=== PATIENT | female | born 1970 | race Caucasian/White ===

== ENCOUNTER 2024-05-27 11:03 | Emergency (ER) | payer OTHER, SELFPAY ==
[2024-05-27 11:05] VITALS: BP 135/61; PULSE 70; RESP 16; TEMP 35.9; O2SAT 98
[2024-05-27 11:14] VITALS: BP 135/61; PULSE 70; RESP 16; TEMP 35.9; O2SAT 98
--- NOTE | 2024-05-27 11:19 | ECG_ITS ---
Test Date: 2024-05-27 12:17:54 Measurements Intervals [place] Rate: 75 P: 41 [place]: 138 QRS: 24 QRSD: 89 T: 45 QT: 424 QTc: 476 Interpretive Statements SINUS RHYTHM NORMAL ECG No previous ECG available for comparison Electronically Signed On 05-27-2024 12:45:24 CDT by Tayo Ramos D.O.
--- NOTE | 2024-05-27 11:30 | PC.NURSE ---
PT STATES SHE IS LEAVING, YOU CAN'T KEEP ME HERE, I HAVE DONE NOTHING WRONG, I DO NOT WANT TO HURT MYSELF OR ANYONE ELSE. THIS IS WRONG, I SHOULDN'T BE HERE. YOU WON'T LET ME TALK TO ANYONE WHO ISN'T FROM [place] AND EVERYONE IS LYING TO ME, NOW WHAT? IT IS ALWAYS SOMETHING ELSE WITH YOU PEOPLE. PD NOTIFIED THAT PT WAS ATTEMPTING TO LEAVE, HOWEVER SHE DID CALM DOWN AND WAS REDIRECTED TO EXAM ROOM. PD STAYED AT BEDSIDE WHILE LABS WERE COLLECTED, MEDICATIONS ADMINISTERED, AND WAS OUTSIDE OF RR WHEN PT CHANGED HER CLOTHING INTO SCRUBS. BELONGINGS WERE SECURED IN [facility] ROOM. PT DOES RAMBLE ON LOUDLY REFUSING TO COMPLY, HOWEVER SHE REFUSES, SHE IS COMPLYING. PT REPORTS SHE WILL TAKE HER DOSE OF ZYPREXA IN ER, STATES SHE DID TAKE HER DOSE LAST PM, THAT SHE HAS NOT TAKEN HER DAILY DOSE SERTRALINE. PT DOES RETURN TO EXAM ROOM AND STAY IN ROOM, CONTINUING TO STATE SHE NEEDS TO BE HOME TO SEE THE HOUSING AUTHORITY AND NO ONE WILL LET HER USE THE PHONE, SHE WANTS TO TALK WITH DENISE FROM [employer] AND WE WILL NOT ALLOW HER TO. RN MADE CALL TO [employer] AND LEFT A MESSAGE, AWAITING RETURN CALL. PT'S VOICE AND MOODS ARE LABILE, HOWEVER SHE DOES COMPLY WITH INSTRUCTIONS. THOUGHTS ARE DISORIENTED, PT EXPERIENCING PARANOID DELUSIONS. WILL CONTINUE TO MONITOR.
[2024-05-27] MEDS: OLANZapine 2.5 MG TABLET 10 MG PO (11:41)
[2024-05-27 11:42] LABS: Basophils Absolute Auto 0.07 K/mm3 (0.00-0.10); Basophils Percent Auto 0.7 % (0.0-1.0); Eosinophils Absolute Auto 0.03 K/mm3 (0.02-0.50); Eosinophils Percent Auto 0.3 % (1.0-6.0); Hematocrit 40.2 % (35.0-49.0); Hemoglobin 13.5 g/dL (12.0-15.0); Immature Granulocyte Absolute 0.04 K/mm3 (0.00-0.00); Immature Granulocyte Percent A 0.4 % (0.0-0.0); Lymphocytes Percent Auto 31.3 % (18.0-42.0); Mean Corpuscular HGB Conc 33.6 g/dL (32-36); Mean Corpuscular Hemoglobin 29.6 pg (27.0-31.0); Mean Corpuscular Volume 88.2 fL (78.0-102.0); Mean Platelet Volume 9.4 fl (9.2-11.8); Monocytes Absolute Auto 0.74 K/mm3 (0.10-0.90); Monocytes Percent Auto 7.7 % (2.0-11.0); Neutrophils Absolute Auto 5.71 K/mm3 (1.70-7.20); Neutrophils Percent Auto 59.6 % (50.0-70.0); Platelet Count Result 331 K/mm3 (150-420); Red Blood Count 4.56 M/mm3 (4.20-5.40); Red Cell Distribution Width 13.4 % (11.6-14.4); White Blood Count 9.6 K/mm3 (4.8-10.8)
[2024-05-27 12:36] LABS: Add Urine Microscopic? NO; Appearance Urine Clear (Clear); Bilirubin Urine Negative (Negative); Blood Urine Negative (Negative); Color Urine Yellow (Yellow); Glucose Urine UA Negative (Negative); Ketones Urine Negative (Negative); Leukocyte Esterase Ur Negative LEU/UL (Negative); Nitrate Urine Negative (Negative); Protein Urine Negative (Negative); Urobilinogen Urine 0.2 mg/dL (0.2-1.0); pH Urine 7.5 (5.0-8.0)
--- NOTE | 2024-05-27 12:44 | PC.NURSE ---
PT IS SITTING ON STRETCHER EATING LUNCH AT THIS TIME. PT IS TALKING TO HERSELF, STATING 'IT'S MY HOUSE AND MY STUFF AND I WILL DO WHATEVER I HAVE TO TO KEEP MY STUFF. PT THEN STATES NO ONE WILL LET HER TALK TO ANYONE OUTSIDE OF [place], PT IS HAVING RAMBLING SPEECH, UNABLE TO STAY ON TRACK. CONTINUALLY REPORTS' I DON'T WANT TO HURT MYSELF OR ANYONE ELSE, I AM HERE VOLUNTARILY. 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 WE ALL KNOW I'M CRAZY, BUT I AM OK, I DON'T NEED TO BE HERE. 'PT IS AWAITING LAB RESULTS AT THIS TIME. WILL CONTINUE TO MONITOR.
[2024-05-27 13:06] LABS: SARS-CoV-2 RNA PCR Negative (Negative)
[2024-05-27 13:20] LABS: Influenza B QL RT-PCR Negative (Negative)
[2024-05-27 13:21] LABS: Influenza A QL RT-PCR Negative (Negative); RSV RNA, RT-PCR Negative (Negative)
[2024-05-27 13:45] LABS: Acetaminophen < 10 ug/mL (10-30); Ethanol < 10 mg/dL (<10); Salicylate < 1.0 mg/dL (2-20)
--- NOTE | 2024-05-27 13:52 | PC.NURSE ---
PT IS LYING ON STRETCHER AWAITING RESULTS PRIOR TO [facility] BEING NOTIFIED. PT CONTINUES TO RAMBLE ABOUT THINGS THAT ARE NOT CONNECTED. PT CONTINUES TO REPORT SHE HAS TO MEET THE HOUSING DEPARTMENT AT HER APARTMENT AT 4PM. PT IS REDIRECTIBLE AT THIS TIME. WILL CONTINUE TO MONITOR.
[2024-05-27 13:55] LABS: Barbiturate Screen Urine Negative (Negative); Benzodiazepines Screen Urine Negative (Negative)
[2024-05-27 14:05] LABS: Cannabinoid Screen Urine Positive (Negative); Cocaine Screen Urine Negative (Negative); Methadone Screen Urine Negative (Negative); Opiate Screen Urine Negative (Negative); Phencyclidine Screen Urine Negative (Negative)
[2024-05-27 14:17] LABS: Alanine Aminotransferase 14 U/L (6-35); Albumin Level 4.5 g/dL (3.5-5.1); Alkaline Phosphatase 122 U/L (38-126); Anion Gap 11 mmol/L (4-12); Aspartate Amino Transferase 58 U/L (14-36); Bilirubin,Total 0.8 mg/dL (0.2-1.3); Blood Urea Nitrogen 13 mg/dL (7-17); Calcium 9.1 mg/dL (8.4-10.2); Carbon Dioxide 25 mmol/L (22-30); Chloride 97 mmol/L (98-107); Estimated CRCL calculation 51 ml/min; Estimated Glomerular Filt Rate 58; Glucose 99 mg/dL (65-110); Osmolality Calculated 276 mOsm/kg (285-295); Potassium 3.7 mmol/L (3.4-5.0); Sodium 133 mmol/L (137-145)
[2024-05-27 14:37] LABS: Amphetamine Screen Urine Positive (Negative)
--- NOTE | 2024-05-27 14:49 | PC.NURSE ---
PT IS CURRENTLY SLEEPING IN EXAM ROOM, [facility] WAS NOTIFIED, REPORTS SOMEONE WILL BE NOTIFIED FOR ASSESSMENT. WILL CONTINUE TO MONITOR.
[2024-05-27 15:00] VITALS: BP 132/78; PULSE 66; RESP 16; O2SAT 98
--- NOTE | 2024-05-27 15:38 | PC.NURSE ---
[facility] H[facility]. PT CONTINUES TO REST ON STRETCHER WITHOUT DISTRESS. WILL CONTINUE TO MONITOR.
--- NOTE | 2024-05-27 16:27 | PC.NURSE ---
[facility] HAS ARRIVED FOR EVALUATION.
--- NOTE | 2024-05-27 16:40 | ED.PSYCH ---
HPI - Psych General Chief Complaint: Psychiatric Symptoms Stated Complaint: medical clearance Time Seen by Provider: 05/27/24 11:19 Source: patient and EMS Mode of arrival: EMS Limitations: no limitations History of Present Illness HPI Narrative: this is a 53-year-old female with a history of psychosis and depression was brought in by EMS after she called police department seeking help and wanted to speak with a counselor. And EMS brought patient to the emergency department. The patient has been having hallucinations, denies any suicidal or homicidal thoughts or ideations. Otherwise there is no chest pain no shortness of breath no abdominal pain no fever chills no diarrhea constipation. complaint: altered mental status Onset (ago): hour(s) Duration: intermittent History of same: Yes Related Data Home Medications Medication Instructions Recorded Confirmed atorvastatin 20 mg tablet 20 mg PO DAILY 05/27/24 05/27/24 fluoxetine 20 mg capsule 20 mg PO DAILY 05/27/24 05/27/24 levothyroxine 25 mcg tablet 25 mcg PO DAILY 05/27/24 05/27/24 olanzapine 20 mg tablet 20 mg PO DAILY 05/27/24 05/27/24 quetiapine 100 mg tablet 100 mg PO DAILY 05/27/24 05/27/24 quetiapine 25 mg tablet 25 mg PO DAILY 05/27/24 05/27/24 Allergies Allergy/AdvReac Type Severity Reaction Status Date / Time No Known Allergies Allergy Verified 05/27/24 11:06 Review of Systems Review of Systems: All systems reviewed & are unremarkable except as noted in HPI and below PMFSH Past Medical History Medical History Depression Psychosis Family History Family History Mother Family history of bipolar disorder Other Family history of coronary artery disease Family history of mental disorder Hypertension Social History Social History Substance use type: marijuana Exam Const: General: healthy appearing and no acute distress Nutritional Appearance: well nourished Limitations: no limitations and behavioral limitations HENMT: Head: normal to inspection Eyes: Conjunctivae: conjunctivae normal Pupils: Equal, round and reactive pupils present Neck: Neck: normal visual inspection and no lymphadenopathy Chest: Chest palpation & inspection: normal inspection of the chest Resp: Effort & Inspection: normal respiratory effort Auscultation: clear to auscultation bilaterally Cardio: Rate: regular rate Rhythm: regular rhythm GI: GI Palp: Yes Soft to palpation Auscultation: normal bowel sounds Skin: General skin exam: normal color Neuro: General: patient oriented x3, moves all extremities and no meningeal signs Cranial nerves: Yes Nystagmus not present Speech: normal speech Gait exam (Neuro): Normal gait present Extrem: General: normal to inspection Psych: Affect: normal affect Course Course Emergency Course: patient received a dose of p.o. Zyprexa and labs reviewed and within normal limits and mental health currently evaluated patient. Vital Signs Vital signs: Vital Signs Oxygen Delivery Room Air 05/27/24 11:03 Temperature 36.7 C 05/27/24 17:28 Pulse Rate 72 05/27/24 17:28 Respiratory Rate 18 05/27/24 17:28 Blood Pressure 128/70 05/27/24 17:28 Pulse Oximetry 98 05/27/24 17:28 Oxygen Delivery Room Air 05/27/24 17:28 MDM - Psych Lab Data 05/27/24 11:37 05/27/24 11:37 Labs: Lab Results 05/27/24 05/27/24 05/27/24 Range/Units 11:37 12:02 12:14 WBC 9.6 (4.8-10.8) K/mm3 RBC 4.56 (4.20-5.40) M/mm3 Hgb 13.5 (12.0-15.0) g/dL Hct 40.2 (35.0-49.0) % MCV 88.2 (78.0-102.0) fL MCH 29.6 (27.0-31.0) pg MCHC 33.6 (32-36) g/dL RDW 13.4 (11.6-14.4) % Plt Count 331 (150-420) K/mm3 MPV 9.4 (9.2-11.8) fl Immature Gran % (Auto) 0.4 H (0.0-0.0) % Neut %
--- NOTE | 2024-05-27 17:22 | PC.NURSE ---
PT REPORTS I WAS IMAGING ALL THAT STUFF, I AINT CALLING 911 ANY MORE. PT IS MORE ALERT, COOPERATIVE, AND ABLE TO ANSWER QUESTIONS, FOLLOW A TRAIN OF THOUGHT. PT REPORTS MY MIND FEELS BETTER, I NEEDED SOME SLEEP. PT HAS EATEN DINNER AND IS TO BE DC HOME WITH A SAFETY PLAN. PT CONTINUES TO DENY ANY SI OR HI. PT REPORTS SHE JUST HAS NOT BEEN GETTING ENOUGH SLEEP. PT IS ABLE TO VERBALIZE HER FOLLOW UP APPOINTMENTS WITH [facility] ARE SCHEDULED. PT IS AMBULATORY TO , AND BELONGINGS RETURNED. PT IS CHANGING CLOTHES FOR DISCHARGE HOME.
[2024-05-27 17:28] VITALS: BP 128/70; PULSE 72; RESP 18; TEMP 36.7; O2SAT 98
== END 2024-05-27 17:28 | disposition home or self-care (01) ==
PROVIDERS: Emergency Provider Emergency Medicine; PCP Internal Medicine
DX: F29 Unspecified psychosis not due to a substance or known physiological condition (principal); Z79.899 Other long term (current) drug therapy; Z20.822 Contact with and (suspected) exposure to COVID-19
CPT/HCPCS: 36415; 80053; 80307; 81003; 85025; 87637; 93005; 99284; A9270

== ENCOUNTER 2024-06-28 10:41 | Emergency (ER) | payer OTHER, SELFPAY ==
[2024-06-28 10:54] VITALS: BP 152/88; PULSE 105; RESP 20; TEMP 36.4; O2SAT 97
--- NOTE | 2024-06-28 10:59 | ED.GENADULT ---
HPI - General Adult General Chief complaint: Anxiety Stated complaint: anxiety Source: patient Mode of arrival: ambulatory Limitations: no limitations History of Present Illness HPI narrative: 54 years old white female came to the emergency room by private car complaining of want make sure that nothing wrong called on her body. Patient report cannot relax. She does not want to drink alcohol, or take marijuana or take any benzodiazepine. Patient denied any suicidal or homicidal ideation. She denies any fever, chills, nausea, vomiting, diarrhea, abdominal pain, chest pain, shortness of breath or headache. Patient is supposed to be on Zyprexa on Seroquel, stop taking Zyprexa months ago, taking a little tight of Seroquel every now and then. Patient used to be on Prozac which stopped April 2024. Patient is trying to manage her medications. Scheduled to see a psychiatrist June 10, 2024. Related Data Home Medications Medication Instructions Recorded Confirmed atorvastatin 20 mg tablet 20 mg PO DAILY 05/27/24 06/28/24 fluoxetine 20 mg capsule 20 mg PO DAILY 05/27/24 06/28/24 levothyroxine 25 mcg tablet 25 mcg PO DAILY 05/27/24 06/28/24 olanzapine 20 mg tablet 20 mg PO DAILY 05/27/24 06/28/24 quetiapine 100 mg tablet 50 mg PO DAILY 05/27/24 06/28/24 Allergies Allergy/AdvReac Type Severity Reaction Status Date / Time No Known Allergies Allergy Verified 05/27/24 11:06 Review of Systems Review of Systems: All systems reviewed & are unremarkable except as noted in HPI and below PMFSH Past Medical History Medical History Depression Psychosis Family History Family History Mother Family history of bipolar disorder Other Family history of coronary artery disease Family history of mental disorder Hypertension Social History Social History Substance use type: marijuana Exam Narrative: General appearance: Well-developed, well-nourished , anxious, talking too much, difficult to stop her Skin: Normal color Head: Normocephalic, nontraumatic Eyes: Clear conjunctiva ENT: Oropharynx normal, ears normal, nose normal Neck: Supple, nontender Chest and respiratory: Airway patent, no respiratory distress, no accessory muscle use Heart: Regular rate/rhythm Abdomen: Soft, nontender, no organomegaly, quiet bowel sounds Vascular: Normal peripheral pulses, normal capillary refill. Musculoskeletal: Normal range of motion, nontender back Neurologic: Alert and oriented ?3, HEADRIG SAWYER is normal as tested, no gross motor deficit, Course Vital Signs Vital signs: Vital Signs Temperature 36.4 C 06/28/24 10:54 Pulse Rate 105 H 06/28/24 10:54 Respiratory Rate 20 06/28/24 10:54 Blood Pressure 152/88 H 06/28/24 10:54 Pulse Oximetry 97 06/28/24 10:54 Oxygen Delivery Room Air 06/28/24 10:54 Temperature 36.4 C 06/28/24 10:54 Pulse Rate 105 H 06/28/24 10:54 Respiratory Rate 20 06/28/24 10:54 Blood Pressure 152/88 H 06/28/24 10:54 Pulse Oximetry 97 06/28/24 10:54 Oxygen Delivery Room Air 06/28/24 10:54 Medical Decision Making MDM Narrative Medical decision making narrative: differential diagnosis anxiety, depression, psychosis, insomnia, noncompliance with psych medications. Patient denies any suicidal or homicidal ideation. The Patient agreed to take 1 mg of Ativan prior to discharge. Patient was advised to call her psychiatrist as soon as possible for early appointment Vital Signs Vital Signs: Vital Signs Temperature 36.4 C 06/28/24
[2024-06-28] MEDS: LORazepam (*CRX) 0.5 MG TABLET 1 MG PO (11:22)
== END 2024-06-28 11:40 | disposition home or self-care (01) ==
PROVIDERS: Emergency Provider Emergency Medicine; PCP Internal Medicine
DX: F29 Unspecified psychosis not due to a substance or known physiological condition (principal); F41.9 Anxiety disorder, unspecified
CPT/HCPCS: 99283; A9270

== ENCOUNTER 2024-08-04 12:19 | Emergency (ER) | payer OTHER, SELFPAY ==
[2024-08-04 12:22] VITALS: BP 158/92; PULSE 99; RESP 22; TEMP 36.4; O2SAT 98
--- NOTE | 2024-08-04 12:29 | ED_ITS ---
HPI - Psych General Chief Complaint: Anxiety Stated Complaint: anxiety Source: patient Mode of arrival: ambulatory Limitations: no limitations History of Present Illness HPI Narrative: 53-year-old female with a history of ex- alcoholism,anxiety /depression, PTSD, bipolar, hypothyroidism, dyslipidemia presents to the ED for -- Anxiety. Wants to renew her medications which include Zyprexa and Seroquel. Patient denies any delusions or hallucinations. Patient has insomnia. denies any physical complaints. MD complaint: other ( anxiety) Onset (ago): week(s) Duration: constant History of same: Yes Relieving factors: none Exacerbating factors: none Context: not taking psychiatric medications Associated psychiatric symptoms: other ( anxiety) Associated symptoms: denies other symptoms Related Data Home Medications Medication Instructions Recorded Confirmed atorvastatin 20 mg tablet 20 mg PO DAILY 05/27/24 06/28/24 fluoxetine 20 mg capsule 20 mg PO DAILY 05/27/24 06/28/24 levothyroxine 25 mcg tablet 25 mcg PO DAILY 05/27/24 06/28/24 olanzapine 20 mg tablet 20 mg PO DAILY 05/27/24 06/28/24 quetiapine 100 mg tablet (Seroquel) 100 mg PO DAILY 05/27/24 06/28/24 Allergies Allergy/AdvReac Type Severity Reaction Status Date / Time No Known Allergies Allergy Verified 08/04/24 12:57 Review of Systems Review of Systems: All systems reviewed & are unremarkable except as noted in HPI and below Constitutional: Constitutional: Reports as per HPI and Reports no additional constitutional complaints Eyes: Eyes: Reports as per HPI and Reports no additional eye complaints ENT: Reports system reviewed and no additional complaints, except as documented and Reports as per HPI Cardiovascular: Cardiovascular: Reports as per HPI and Reports no additional cardiovascular complaints Respiratory: Respiratory: Reports as per HPI, Reports no additional respiratory complaints, Reports cough and Reports wheezing Gastrointestinal: Gastrointestinal: Reports as per HPI and Reports no additional gastrointestinal complaints Genitourinary: Genitourinary: Reports no additional female genitourinary complaints and Reports as per HPI Musculoskeletal: Musculoskeletal: Reports no additional musculoskeletal compl aints and Reports as per HPI Integumentary/Breasts: Skin/Breast: Reports system reviewed and no additional complaints, except as docu and Reports as per HPI Neurologic: Reports system reviewed and no additional complaints, except as documented and Reports as per HPI Psychiatric: Psychiatric: Reports no additional psychiatric complaints, Reports as per HPI and Reports anxiety Endocrine: Endocrine: Reports no additional endocrine complaints and Reports as per HPI Hematologic/Lymphatic: Hematologic/Lymphatic: Reports no additional hematologic/lymphatic complaints and Reports as per HPI Allergic/Immunologic: Allergic/Immunologic: Reports no additional allergic/immunologic complaints and Reports as per HPI [facility] Past Medical History Medical History Depression Psychosis Family History Family History Mother Family history of bipolar disorder Other Family history of coronary artery disease Family history of mental disorder Hypertension Social History Social History Substance use type: marijuana Exam Narrative: blood pressure 158/92. Const: General: healthy appearing and no acute distress Orientation/consciousness: patient oriented x3 Limitations: no limitations HENMT: Head: normal to inspection Ears: external ears normal Face/Nose/Sinus: Normal external nose present Face and sinus: normal facial exam Mouth: Yes Normal oral and palatal mucosa present Throat: posterior oropharynx normal Eyes: Conjunctivae: conjunctivae normal Pupils: Equal, round and reactive pupils present EOM: EOMs intact bilaterally Direct Ophthalmoscopy: no photophobia Neck: Neck: normal visual inspection, no lymphadenopathy and no meningeal signs Chest: Chest palpation & inspection: normal inspection of the chest Resp: Effort & Inspection: normal respiratory effort Auscultation: clear to auscultation bilaterally Cardio: Rate: regular rate Rhythm: regular rhythm GI: GI Palp: Yes Soft to palpation Auscultation: normal bowel sounds Other: No tenderness/ rigidity/rebound : General: Yes no CVA tenderness Back/Spine/Pelvis: Back: no CVA tenderness Skin: General skin exam: normal color Rashes: no rashes Wounds: no wounds Neuro: General: patient oriented x3, moves all extremities, no meningeal signs, no focal motor deficits and CN's II-XI intact bilaterally Cranial nerves: Yes Nystagmus not present Speech: normal speech Gait exam (Neuro): Normal gait present Extrem: General: normal to inspection and no clubbing, cyanosis or edema Psych: Mental Status: mental status grossly normal Affect: normal affect Other: anxiety no hallucinations or delusions Course Course Emergency Course: anxiety bipolar Vital Signs Vital signs: Vital Signs Temperature 36.4 C 08/04/24 12:22 Pulse Rate 99 08/04/24 12:22 Respiratory Rate 22 H 08/04/24 12:22 Blood Pressure 158/92 H 08/04/24 12:22 Pulse Oximetry 98 08/04/24 12:22 Oxygen Delivery Room Air 08/04/24 12:22 Temperature 36.4 C 08/04/24 12:22 Pulse Rate 99 08/04/24 12:22 Respiratory Rate 22 H 08/04/24 12:22 Blood Pressure 158/92 H 08/04/24 12:22 Pulse Oximetry 98 08/04/24 12:22 Oxygen Delivery Room Air 08/04/24 12:22 MDM - Psych MDM Narrative Medical decision making narrative: anxiety bipolar chronic bronchitis Differential Diagnosis Differential diagnosis: Likely acute psychosis and chronic schizophrenia Medical Records Attestation: I reviewed the patient's medical records. Discharge Plan Discharge Clinical Impression: Acute anxiety Psychosis Qualifiers: Psychosis type: unspecified psychosis type Qualified Code(s): F29 - Unspecified psychosis not due to a substance or known physiological condition Chronic bronchitis Qualifiers: Chronic bronchitis type: simple Qualified Code(s): J41.0 - Simple chronic bronchitis Patient Disposition: Home, Self-Care Condition: Stable Instructions: Antibiotic Form, Anxiety (ED) Patient Language: Greek Prescriptions: New quetiapine [Seroquel] 100 mg tablet 100 mg PO HS Qty: 30 1RF olanzapine [Zyprexa] 20 mg tablet 20 mg PO DAILY Qty: 30 1RF levothyroxine 25 mcg capsule 25 mcg PO DAILY Qty: 30 1RF atorvastatin 20 mg tablet 20 mg PO HS Qty: 30 1RF albuterol sulfate 90 mcg/actuation HFA aerosol inhaler 2 puff inhalation QID PRN (Reason: shortness of breath or wheezing) Qty: 8.5 0RF No Action atorvastatin 20 mg tablet 20 mg PO DAILY quetiapine [Seroquel] 100 mg tablet 100 mg PO DAILY levothyroxine 25 mcg tablet 25 mcg PO DAILY fluoxetine 20 mg capsule 20 mg PO DAILY olanzapine 20 mg tablet 20 mg PO DAILY Follow-up/Referrals: UNKNOWN,DOCTOR [Primary Care Provider] - Time of Disposition: 13:07
== END 2024-08-04 13:24 | disposition home or self-care (01) ==
PROVIDERS: Emergency Provider Internal Medicine Critical Care Medicine
DX: F41.9 Anxiety disorder, unspecified (principal); F29 Unspecified psychosis not due to a substance or known physiological condition; J41.0 Simple chronic bronchitis; E03.9 Hypothyroidism, unspecified; E78.5 Hyperlipidemia, unspecified; Z79.899 Other long term (current) drug therapy
CPT/HCPCS: 99283

== ENCOUNTER 2024-08-12 08:38 | Outpatient (CLI) | payer OTHER, SELFPAY ==
[2024-08-12 09:03] LABS: Hemoglobin A1C 5.1 % (<5.7)
[2024-08-12 09:46] LABS: Cholesterol 241 mg/dL (0-200); HDL Direct 64 mg/dL (40-60); LDL Cholesterol Calculated 160 mg/dL (<130); Triglycerides 83 mg/dL (0-150)
== END 2024-08-12 08:39 | disposition home or self-care (01) ==
PROVIDERS: PCP Family Medicine; Visit Provider Family Medicine
DX: F31.9 Bipolar disorder, unspecified (principal); E11.9 Type 2 diabetes mellitus without complications
CPT/HCPCS: 36415; 80061; 83036